=== PATIENT | female | born 1930 ===

== ENCOUNTER 2020-04-03 23:30 | Inpatient (IN) ==
[2020-04-03] MEDS ORDERED: Bupivacaine 0.25% SDV PF 10 ML VIAL INJ ONE ×2 (23:45→23:47)
[2020-04-04] MEDS ORDERED: Bupivacaine 0.5% SDV PF 30ML VIAL INJ ONE
[2020-04-04] MEDS ORDERED: fentaNYL 100 mcg/2 ml 50 MCG/ML VIAL IV SLOW PU ONE (00:27)
[2020-04-04 01:54] LABS: ABS Lymphocytes 0.7 10^3/ul (1.0-4.8); ABS Monocytes 0.9 10^3/ul (0-0.8); ABS Neutrophils 8.7 10^3/ul (1.5-7.7); Eosinophil % 0.3 %; Hematocrit 36 % (35-47); Hemoglobin 11.7 g/dL (12.0-16.0); Mean Corpuscular HGB Conc 32 g/dL (31-36); Mean Corpuscular Hemoglobin 28 pg (27-31); Mean Corpuscular Volume 85 fL (80-97); Mean Platelet Volume 8.7 fL (7.4-10.4); Platelet Count 182 10^3/uL (150-450); Red Blood Count 4.25 10^6 /uL (3.70-4.87); Red Cell Distribution Width 17 % (10-15); White Blood Count 10.4 10^3/uL (3.5-10.8)
[2020-04-04 02:10] LABS: Albumin 3.8 g/dL (3.2-5.2); Albumin/Globulin Ratio 1.2 (1-3); EGFR African American 63.3 (>60); EGFR Non-African American 52.3 (>60); Globulin 3.1 g/dL (2-4); Magnesium 1.7 mg/dL (1.9-2.7); Total Bilirubin 0.5 mg/dL (0.2-1.0); Total Protein 6.9 g/dL (6.4-8.9)
[2020-04-04 02:14] LABS: INR 1.16 (0.82-1.09)
[2020-04-04 02:25] LABS: Potassium 4.2 mmol/L (3.5-5.0)
[2020-04-04 02:55] LABS: Urine Appearance Cloudy; Urine Bilirubin Negative (Negative); Urine Blood Negative (Negative); Urine Color Yellow; Urine Glucose Negative (Negative); Urine Ketones Trace (Negative); Urine Nitrite Positive (Negative); Urine Protein Negative (Negative); Urine Specific Gravity 1.014 (1.010-1.030); Urine Urobilinogen Negative (Negative)
[2020-04-04] MEDS ORDERED: Polyethylene Glycol 3350 17 GM PACKET PO PRN (03:13)
[2020-04-04] MEDS ORDERED: Magnesium Hydroxide LIQ 30 ML UDC PO PRN (03:13)
[2020-04-04] MEDS ORDERED: Senna TAB 8.6 mg TAB PO PRN (03:13)
[2020-04-04 04:00] LABS: Urine Bacteria 1+ (Absent); Urine Red Blood Cell Absent (Absent); Urine Squamous Epithelial Cell Present (Absent); Urine White Blood Cell 1+(6-10/hpf) (Absent)
[2020-04-04] MEDS ORDERED: cefTRIAXone 1 gm/50 mL NS BAG 1 GM/50 ML BAG IV ONE (04:45)
[2020-04-04] MEDS ORDERED: Magnesium Sulfate 2 gm BAG 2 GM/50 ML BAG IVPB ONE (06:02)
[2020-04-04] MEDS: Morphine 2 MG/ML SYRINGE IV PRN (06:40)
[2020-04-04] MEDS: Cholecalciferol (VIT D3) 1,000 unit TAB PO SCH (08:39)
[2020-04-04] MEDS: MULTIVITAMINS PO SCH ×2 (08:42→20:30)
[2020-04-04] MEDS: MINERA AREDS PO SCH ×2 (08:42→20:30)
[2020-04-05] MEDS ORDERED: cefTRIAXone 1 gm/50 mL NS BAG 1 GM/50 ML BAG IVPB SCH (05:00)
[2020-04-05] MEDS ORDERED: Haloperidol 5 mg/ml SDV IV/IM 5 MG/ML AMP IM ONE (09:39)
[2020-04-05] MEDS: Cholecalciferol (VIT D3) 1,000 unit TAB PO SCH (09:51)
[2020-04-05] MEDS: MINERA AREDS PO SCH ×2 (09:52→20:05)
[2020-04-05] MEDS: MULTIVITAMINS PO SCH ×2 (09:52→20:05)
[2020-04-05 11:14] LABS: ABS Eosinophils 0.1 10^3/ul (0-0.6); ABS Lymphocytes 0.9 10^3/ul (1.0-4.8); ABS Monocytes 1.2 10^3/ul (0-0.8); ABS Neutrophils 8.5 10^3/ul (1.5-7.7); Eosinophil % 1.1 %; Hematocrit 34 % (35-47); Hemoglobin 11.2 g/dL (12.0-16.0); Lymphocyte % 8.5 %; Mean Corpuscular HGB Conc 33 g/dL (31-36); Mean Corpuscular Hemoglobin 28 pg (27-31); Mean Corpuscular Volume 86 fL (80-97); Mean Platelet Volume 8.7 fL (7.4-10.4); Platelet Count 152 10^3/uL (150-450); Red Blood Count 4.03 10^6 /uL (3.70-4.87); Red Cell Distribution Width 17 % (10-15); White Blood Count 10.8 10^3/uL (3.5-10.8)
[2020-04-05 11:22] LABS: INR 1.29 (0.82-1.09)
[2020-04-05 11:41] LABS: BUN/Creatinine Ratio 19.6 (8-20); Calcium 8.9 mg/dL (8.6-10.3); EGFR African American 69.7 (>60); EGFR Non-African American 57.6 (>60)
[2020-04-05] MEDS: oxyCODONE/Acetamin 5/325 mg TAB PO PRN ×2 (13:39→20:04)
[2020-04-05] MEDS: Morphine 2 MG/ML SYRINGE IV PRN (20:49)
[2020-04-06] MEDS: Morphine 2 MG/ML SYRINGE IV PRN (03:47)
[2020-04-06] MEDS ORDERED: Lidocaine 2% PF 5 ML VIAL ONE (07:17)
[2020-04-06] MEDS ORDERED: Desflurane 240 ML INH ONE (07:17)
[2020-04-06] MEDS ORDERED: Sevoflurane BOTTLE ONE (07:17)
[2020-04-06] MEDS ORDERED: Propofol 10 MG/ML 20 ML BTL ONE ×2 (07:18→07:28)
[2020-04-06] MEDS: MULTIVITAMINS PO SCH ×2 (07:23→20:55)
[2020-04-06] MEDS: MINERA AREDS PO SCH ×2 (07:23→20:55)
[2020-04-06] MEDS: Cholecalciferol (VIT D3) 1,000 unit TAB PO SCH (07:23)
[2020-04-06] MEDS ORDERED: Bupivacaine 0.5% SDV PF 30ML VIAL ONE (07:30)
[2020-04-06] MEDS ORDERED: ceFAZolin 2 GM PREMIX 2 GM/50 ML BAG ONE (07:52)
[2020-04-06] MEDS ORDERED: Naloxone 0.4 mg VIAL 0.4 mg/ml 1 ml VIAL IV PRN (09:36)
[2020-04-06] MEDS ORDERED: Ondansetron 4 mg VIAL 2 MG/ML 2 ml VIAL IV PRN (09:36)
[2020-04-06] MEDS ORDERED: Lidocaine 1% w EPI 1:200,000 SDV 30 ML VIAL ONE (09:58)
[2020-04-06] MEDS ORDERED: HYDROmorphone 1 MG/1 ML SYRINGE ONE (10:42)
[2020-04-06] MEDS: HYDROmorphone 1 MG/1 ML SYRINGE IV PRN ×3 (10:44→11:00)
[2020-04-06] MEDS ORDERED: Lactated Ringers 1000 ml BAG 1,000 ML IV SCH (13:00)
[2020-04-06] MEDS: ceFAZolin 1 GM X 3 DOSES POST-OP Q8H (AddVan) IVPB SCH (15:57)
[2020-04-06] MEDS: oxyCODONE/Acetamin 5/325 mg TAB PO PRN (22:50)
[2020-04-07] MEDS: ceFAZolin 1 GM X 3 DOSES POST-OP Q8H (AddVan) IVPB SCH ×2 (00:30→08:04)
[2020-04-07] MEDS: NS 0.9% 1000 ml BAG 1,000 ML IV SCH ×2 (01:58→14:59)
[2020-04-07 05:27] LABS: ABS Eosinophils 0.3 10^3/ul (0-0.6); ABS Lymphocytes 0.9 10^3/ul (1.0-4.8); ABS Monocytes 0.7 10^3/ul (0-0.8); ABS Neutrophils 4.8 10^3/ul (1.5-7.7); Eosinophil % 3.8 %; Hematocrit 27 % (35-47); Hemoglobin 8.7 g/dL (12.0-16.0); Lymphocyte % 12.8 %; Mean Corpuscular HGB Conc 33 g/dL (31-36); Mean Corpuscular Hemoglobin 28 pg (27-31); Mean Corpuscular Volume 86 fL (80-97); Mean Platelet Volume 9.1 fL (7.4-10.4); Platelet Count 111 10^3/uL (150-450); Red Cell Distribution Width 17 % (10-15); White Blood Count 6.7 10^3/uL (3.5-10.8)
[2020-04-07 05:49] LABS: BUN/Creatinine Ratio 18.9 (8-20); Calcium 7.8 mg/dL (8.6-10.3); EGFR African American 89.6 (>60); EGFR Non-African American 74.1 (>60); Potassium 3.5 mmol/L (3.5-5.0)
[2020-04-07] MEDS: Cholecalciferol (VIT D3) 1,000 unit TAB PO SCH (08:00)
[2020-04-07] MEDS: MINERA AREDS PO SCH ×2 (08:03→20:18)
[2020-04-07] MEDS: MULTIVITAMINS PO SCH ×2 (08:03→20:18)
[2020-04-07] MEDS: oxyCODONE/Acetamin 5/325 mg TAB PO PRN ×2 (12:15→20:19)
[2020-04-08] MEDS: NS 0.9% 1000 ml BAG 1,000 ML IV SCH ×2 (04:05→18:55)
[2020-04-08] MEDS: oxyCODONE/Acetamin 5/325 mg TAB PO PRN ×3 (05:59→20:30)
[2020-04-08 06:09] LABS: ABS Eosinophils 0.5 10^3/ul (0-0.6); ABS Lymphocytes 0.8 10^3/ul (1.0-4.8); ABS Neutrophils 5.2 10^3/ul (1.5-7.7); Eosinophil % 6.2 %; Hematocrit 27 % (35-47); Hemoglobin 8.8 g/dL (12.0-16.0); Lymphocyte % 10.7 %; Mean Corpuscular HGB Conc 33 g/dL (31-36); Mean Corpuscular Hemoglobin 28 pg (27-31); Mean Corpuscular Volume 86 fL (80-97); Mean Platelet Volume 9.1 fL (7.4-10.4); Platelet Count 136 10^3/uL (150-450); Red Blood Count 3.18 10^6 /uL (3.70-4.87); Red Cell Distribution Width 17 % (10-15); White Blood Count 7.5 10^3/uL (3.5-10.8)
[2020-04-08 06:19] LABS: BUN/Creatinine Ratio 16.1 (8-20); Calcium 7.8 mg/dL (8.6-10.3); EGFR African American 109.9 (>60); EGFR Non-African American 90.8 (>60); Potassium 3.3 mmol/L (3.5-5.0)
[2020-04-08 06:40] LABS: Magnesium 1.8 mg/dL (1.9-2.7)
[2020-04-08] MEDS ORDERED: Potassium Chlor 20 meq TAB.ER PO ONE (07:53)
[2020-04-08] MEDS ORDERED: Magnesium Sulfate 2 gm BAG 2 GM/50 ML BAG IVPB ONE (07:53)
[2020-04-08] MEDS ORDERED: Potassium Chloride LIQUID 20 MEQ/15 ML LIQUID PO ONE (08:11)
[2020-04-08] MEDS: MINERA AREDS PO SCH (08:12)
[2020-04-08] MEDS: MULTIVITAMINS PO SCH (08:12)
[2020-04-08] MEDS: Cholecalciferol (VIT D3) 1,000 unit TAB PO SCH (08:41)
[2020-04-09 05:46] LABS: BUN/Creatinine Ratio 13.6 (8-20); Calcium 7.6 mg/dL (8.6-10.3); EGFR African American 116.4 (>60); EGFR Non-African American 96.2 (>60); Magnesium 1.9 mg/dL (1.9-2.7); Potassium 3.3 mmol/L (3.5-5.0)
[2020-04-09] MEDS: oxyCODONE/Acetamin 5/325 mg TAB PO PRN ×2 (05:54→17:19)
[2020-04-09] MEDS ORDERED: Potassium Chloride LIQUID 20 MEQ/15 ML LIQUID PO ONE ×2 (06:21→08:00)
[2020-04-09] MEDS ORDERED: Magnesium Sulfate IV 1GM/100ML 1 GM/100 ML BAG IV ONE (06:49)
[2020-04-09] MEDS: Cholecalciferol (VIT D3) 1,000 unit TAB PO SCH (08:01)
[2020-04-09] MEDS: Multivitamins/Minerals TAB PO SCH (09:56)
[2020-04-09] MEDS ORDERED: Ondansetron 4 mg VIAL 2 MG/ML 2 ml VIAL IV PRN (20:03)
[2020-04-10] MEDS: oxyCODONE/Acetamin 5/325 mg TAB PO PRN (01:57)
[2020-04-10] MEDS ORDERED: Potassium Chloride LIQUID 20 MEQ/15 ML LIQUID PO ONE ×2 (06:34→08:35)
[2020-04-10 06:59] LABS: BUN/Creatinine Ratio 11.3 (8-20); Calcium 8.3 mg/dL (8.6-10.3); EGFR African American 109.9 (>60); EGFR Non-African American 90.8 (>60); Magnesium 1.9 mg/dL (1.9-2.7); Potassium 3.8 mmol/L (3.5-5.0)
[2020-04-10] MEDS ORDERED: Ondansetron ODT 4 mg TAB 4 MG TAB PO PRN (07:49)
[2020-04-10 08:10] VITALS: BP 140/58
[2020-04-10] MEDS ORDERED: Potassium Chlor 20 meq TAB.ER PO ONE ×2 (08:26→10:00)
[2020-04-10] MEDS: Multivitamins/Minerals TAB PO SCH (08:39)
[2020-04-10] MEDS: Cholecalciferol (VIT D3) 1,000 unit TAB PO SCH (08:40)
== END 2020-04-10 09:05 | DRG 481 ==
LOC: ED 23:30 → SSU 04-04 03:06
PROVIDERS: ADMIT Internal Medicine; ATTEND Internal Medicine